=== PATIENT | female | born 1995 | race Caucasian/White ===

== ENCOUNTER 2020-11-13 12:53 | Inpatient (IN) | payer BC ==
[~2020-11-13] VITALS: Ht 157.5 cm; Wt 85.0 kg
[2020-11-13] MEDS: LACTATED RINGERS 1,000 ML IV SCH (13:55)
[2020-11-13] MEDS ORDERED: MISOPROSTOL 25 MCG TABLET VG PRN (14:00)
[2020-11-13] MEDS ORDERED: OXYTOCIN 30U/ 0.9% NaCL 500ML 500 ML IV PRN ×2 (14:00→20:00)
[2020-11-13] MEDS ORDERED: PENICILLIN GK 5,000,000 UNITS in DEXTROSE 5% 100 ML IVPB ONE (14:00)
[2020-11-13] MEDS ORDERED: SODIUM CHLORIDE FLUSH 10ML SYR IVF PRN (14:00)
[2020-11-13] MEDS ORDERED: OXYTOCIN 30U/ 0.9% NaCL 500ML 500 ML IV ONE (14:00)
[2020-11-13] MEDS ORDERED: CALCIUM CARBONATE 500 MG TAB.CHEW PO PRN (14:00)
[2020-11-13] MEDS ORDERED: TERBUTALINE 1 MG/ML, 1ML IVPush PRN (14:00)
[2020-11-13] MEDS ORDERED: ONDANSETRON 2MG/ML, 2ML IVPush PRN (14:00)
[2020-11-13] MEDS ORDERED: TERBUTALINE 1 MG/ML, 1ML SQ PRN (14:00)
[2020-11-13] MEDS ORDERED: FENTANYL PF 100 MCG/2ML IV PRN (14:00)
[2020-11-13 14:20] LABS: BASOPHILS % (AUTO) 0 % (0-1); EOSINOPHILS % (AUTO) 1 % (1-7); LYMPHOCYTES % (AUTO) 16 % (22-44); MEAN CORPUSCULAR HEMOGLOBIN 32.3 pg (27.0-34.8); MEAN CORPUSCULAR HGB CONC 34.2 g/dL (32.4-35.8); MEAN PLATELET VOLUME 9.8 fL (7.4-10.4); MONOCYTES % (AUTO) 6 % (2-9); NEUTROPHILS % (AUTO) 78 % (42-75); PLATELET COUNT 106 x10^3/uL (130-400)
[2020-11-13 14:21] LABS: MD NO
[2020-11-13] MEDS ORDERED: NEWBORN KIT ONE (14:25)
[2020-11-13 14:45] LABS: MICROSCOPIC INDICATED
[2020-11-13 15:28] LABS: ALANINE AMINOTRANSFERASE 16 U/L (12-78); CHLORIDE 107 mmol/L (98-107)
[2020-11-13 15:35] LABS: ALBUMIN 3.1 g/dL (3.4-5.0); ALKALINE PHOSPHATASE 196 U/L (45-117); ANION GAP 8 mmol/L (5-15); BILIRUBIN,TOTAL 0.5 mg/dL (0.2-1.0); CREATININE 0.55 mg/dL (0.55-1.02)
[2020-11-13 19:42] VITALS: BP 120/72
[2020-11-13] MEDS: D5%-LACTATED RINGERS 1,000 ML IV SCH (22:00)
[2020-11-14] MEDS: FENTANYL PF 100 MCG/2ML IVPush PRN ×2 (00:10→03:02)
[2020-11-14] MEDS: LACTATED RINGERS 1,000 ML IV SCH ×5 (03:14→23:50)
[2020-11-14] MEDS: PENICILLIN GK 2,500,000 UNITS in DEXTROSE 5% 100 ML IVPB SCH ×5 (04:01→16:14)
[2020-11-14] MEDS ORDERED: FENTANYL/BUPIV./NS/PF 250 ML EPIDCONT ONE (04:59)
[2020-11-14] MEDS ORDERED: BUPIVACAINE 0.25% ONE (04:59)
[2020-11-14] MEDS ORDERED: FENTANYL/BUPIV./NS/PF 250 ML EPIDCONT SCH (05:30)
[2020-11-14] MEDS ORDERED: EPHEDRINE 50 MG/ML, 1ML IVPush PRN (05:30)
[2020-11-14] MEDS ORDERED: LACTATED RINGERS 1,000 ML IVBOLUS PRN (05:30)
[2020-11-14] MEDS ORDERED: LACTATED RINGERS 1,000 ML IV SCH ×2 (05:30→22:00)
[2020-11-14] MEDS: D5%-LACTATED RINGERS 1,000 ML IV SCH ×4 (06:00→22:00)
[2020-11-14] MEDS ORDERED: DIPHENHYDRAMINE 50 MG/ML, 1ML ONE (16:25)
[2020-11-14] MEDS ORDERED: DIPHENHYDRAMINE 50 MG/ML, 1ML IVPush ONE (16:30)
[2020-11-14] MEDS ORDERED: METOCLOPRAMIDE 5 MG/ML, 2ML ONE (19:04)
[2020-11-14] MEDS ORDERED: SODIUM CITRATE/CITRIC ACID 15 ML UDC ONE (19:04)
[2020-11-14] MEDS ORDERED: AZITHROMYCIN 500 MG in SODIUM CHLORIDE 0.9% 250 ML IV ONE (19:40)
[2020-11-14] MEDS ORDERED: METOCLOPRAMIDE 5 MG/ML, 2ML IV ONE (20:00)
[2020-11-14] MEDS ORDERED: LACTATED RINGERS 1,000 ML IVBOLUS ONE (20:00)
[2020-11-14] MEDS ORDERED: SODIUM CITRATE/CITRIC ACID 30 ML UDC PO ONE (20:00)
[2020-11-14] MEDS ORDERED: OXYTOCIN 10 UNITS/ML, 1ML ONE (20:04)
[2020-11-14] MEDS ORDERED: CEFAZOLIN 1,000 MG ONE (20:04)
[2020-11-14] MEDS ORDERED: LIDOCAINE-MPF 2% ,5ML ONE ×2 (20:04→21:30)
[2020-11-14] MEDS ORDERED: FENTANYL PF 100 MCG/2ML ONE ×2 (21:12→21:29)
[2020-11-14] MEDS ORDERED: BISACODYL 10 MG SUPP PR PRN (22:00)
[2020-11-14] MEDS ORDERED: MISOPROSTOL 200 MCG TABLET PO PRN (22:00)
[2020-11-14] MEDS ORDERED: IBUPROFEN 800 MG TABLET PO PRN (22:00)
[2020-11-14] MEDS ORDERED: METHYLERGONOVINE 0.2 MG/ML IM PRN (22:00)
[2020-11-14] MEDS ORDERED: ONDANSETRON 2MG/ML, 2ML IV PRN (22:00)
[2020-11-14] MEDS ORDERED: SIMETHICONE 80 MG CHEW TAB PO PRN (22:00)
[2020-11-14] MEDS ORDERED: IBUPROFEN 600 MG TABLET PO PRN (22:00)
[2020-11-14] MEDS: OXYTOCIN 30U/ 0.9% NaCL 500ML 500 ML IV SCH (22:00)
[2020-11-14] MEDS ORDERED: METOCLOPRAMIDE 5 MG/ML, 2ML IV PRN (22:00)
[2020-11-14] MEDS ORDERED: GLYCERIN ADULT SUPP PR PRN (22:00)
[2020-11-14] MEDS ORDERED: CARBOPROST TROMETHAMINE 250 MCG/ML, 1ML IM PRN (22:00)
[2020-11-14] MEDS ORDERED: OXYcodone/APAP 5/325MG TABLET PO PRN (22:00)
[2020-11-14] MEDS ORDERED: CALCIUM CARBONATE 500 MG TAB.CHEW PO PRN (22:00)
[2020-11-14] MEDS ORDERED: TRANEXAMIC ACID 1,000 MG in SODIUM CHLORIDE 0.9% 100 ML IVPB ONE (22:00)
[2020-11-15] VITALS: BP 120/76
[2020-11-15] MEDS: KETOROLAC 30 MG/1 ML IV SCH ×4 (03:02→20:32)
[2020-11-15 03:13] VITALS: BP 115/74
[2020-11-15 03:17] LABS: AMPHETAMINE SCREEN, URINE Negative (Negative); BARBITURATE SCREEN, URINE Negative (Negative); BENZODIAZEPINE SCREEN, URINE Negative (Negative); CANNABINOID SCREEN, URINE Negative (Negative); COCAINE SCREEN, URINE Negative (Negative); METHADONE SCREEN, URINE Negative (Negative); OPIATE SCREEN, URINE Negative (Negative)
[2020-11-15] MEDS: D5%-LACTATED RINGERS 1,000 ML IV SCH (03:29)
[2020-11-15 05:14] LABS: BASOPHILS % (AUTO) 0 % (0-1); EOSINOPHILS % (AUTO) 0 % (1-7); LYMPHOCYTES % (AUTO) 10 % (22-44); MEAN CORPUSCULAR HEMOGLOBIN 32.4 pg (27.0-34.8); MEAN CORPUSCULAR HGB CONC 34.1 g/dL (32.4-35.8); MEAN PLATELET VOLUME 9.8 fL (7.4-10.4); MONOCYTES % (AUTO) 5 % (2-9); NEUTROPHILS % (AUTO) 85 % (42-75); PLATELET COUNT 96 x10^3/uL (130-400); RED BLOOD COUNT 3.46 x10^6/uL (3.82-5.3); RED CELL DISTRIBUTION WIDTH 12.7 % (9.6-15.2)
[2020-11-15 05:15] LABS: MD NO
[2020-11-15] MEDS: LACTATED RINGERS 1,000 ML IV SCH ×2 (06:00→08:00)
[2020-11-15 07:55] VITALS: BP 109/72
[2020-11-15] MEDS: OXYTOCIN 30U/ 0.9% NaCL 500ML 500 ML IV SCH (08:00)
[2020-11-15] MEDS: ACETAMINOPHEN 325 MG TABLET PO PRN ×3 (08:16→20:32)
[2020-11-15] MEDS: OXYcodone IR 5MG TABLET PO PRN ×4 (08:16→20:33)
[2020-11-15] MEDS: PRENATAL VIT/IRON/FA 1 EACH TABLET PO SCH (08:16)
[2020-11-15] MEDS: DOCUSATE 100 MG CAPSULE PO PRN ×2 (08:16→20:33)
[2020-11-15 12:00] VITALS: BP 111/74
[2020-11-15] MEDS ORDERED: morphine SULFATE 10 MG/ML, 1ML ONE (12:38)
[2020-11-15] MEDS: morphine SULFATE 10 MG/ML, 1ML IVPush PRN ×2 (12:41→18:05)
[2020-11-15] MEDS ORDERED: morphine SULFATE 10 MG/ML, 1ML IM PRN ×2 (13:00→19:00)
[2020-11-15 16:36] VITALS: BP 103/67
[2020-11-15 19:40] VITALS: BP 108/71
[2020-11-16] MEDS: ACETAMINOPHEN 325 MG TABLET PO PRN ×4 (00:30→15:04)
[2020-11-16] MEDS: OXYcodone IR 5MG TABLET PO PRN ×5 (00:30→15:10)
[2020-11-16] MEDS: KETOROLAC 30 MG/1 ML IV SCH ×4 (02:38→15:03)
[2020-11-16 07:10] VITALS: BP 105/70
[2020-11-16] MEDS: PRENATAL VIT/IRON/FA 1 EACH TABLET PO SCH (09:11)
[2020-11-16] MEDS: DOCUSATE 100 MG CAPSULE PO PRN (09:11)
== END 2020-11-16 15:55 | disposition home or self-care (01) | DRG 786 ==
LOC: LDIP 12:53 → 2NW 11-14 23:25
PROVIDERS: ADMIT Obstetrics & Gynecology; ATTEND Obstetrics & Gynecology
PROC: 10D00Z1 Extraction of Products of Conception, Low, Open Approach (ICD-10-PCS; principal; 2020-11-14)
PROC: 10H07YZ Insertion of Other Device into Products of Conception, Via Natural or Artificial Opening (ICD-10-PCS; 2020-11-14)
DX: O26.62 Liver and biliary tract disorders in childbirth (principal); K83.1 Obstruction of bile duct; O99.12 Other diseases of the blood and blood-forming organs and certain disorders involving the immune mechanism complicating childbirth; Z20.822 Contact with and (suspected) exposure to COVID-19; D69.6 Thrombocytopenia, unspecified; B00.9 Herpesviral infection, unspecified; O62.0 Primary inadequate contractions; R77.2 Abnormality of alphafetoprotein; O99.824 Streptococcus B carrier state complicating childbirth; Z37.0 Single live birth; Z3A.38 38 weeks gestation of pregnancy; Z82.3 Family history of stroke; Z83.3 Family history of diabetes mellitus
CPT/HCPCS: 36415; J3490; J7121; 80053; 80307; 81001; 85025; 86592; 86850; 86900; 87635; G0378; J0456; J0690; J1885; J2540; J3010; J1200; J2270; J2590; J2765; J7050; J7120